=== PATIENT | male | born 1985 | race American Indian/Alaskan Native ===

== ENCOUNTER 2017-07-10 14:33 | Emergency (ER) | payer OTHER ==
[2017-07-10 14:52] VITALS: TEMP 97.5
--- NOTE | 2017-07-10 16:15 | C.PDOC ---
History Of Present Illness 31 yo male c/o right fifth finger pain since Monday (3 days) s/p punching something. Notes decreased movement at the tip of the finger. No change in sensation. No other injury. Right hand dominant. Time Seen by Provider: 07/10/17 15:22 Chief Complaint (Nursing): Finger,Hand,&Wrist History Per: Patient History/Exam Limitations: no limitations Onset/Duration Of Symptoms: Days Current Symptoms Are (Timing): Still Present Past Medical History Vital Signs: Last Vital Signs Temp 97.5 F L 07/10/17 14:51 Pulse 79 07/10/17 16:43 Resp 18 07/10/17 16:43 BP 125/72 07/10/17 16:43 Pulse Ox 98 07/10/17 16:56 Family History: States: Unknown Family Hx - Social History Hx Alcohol Use: Yes Hx Substance Use: Yes - Immunization History Hx Tetanus Toxoid Vaccination: No Hx Influenza Vaccination: No Hx Pneumococcal Vaccination: No Review Of Systems Constitutional: Negative for: Fever Musculoskeletal: Positive for: Hand Pain Neurological: Negative for: Weakness, Numbness Physical Exam - Physical Exam Appears: Well, Non-toxic, No Acute Distress Skin: Normal Color, Warm, Dry Head: Atraumatic, Normacephalic Eye(s): bilateral: Normal Inspection, EOMI Nose: Normal Oral Mucosa: Moist Throat: Normal Neck: Normal, Normal ROM, Supple Chest: Symmetrical Respiratory: No Accessory Muscle Use Back: Normal Inspection Extremity: No Normal ROM (decreased extension at the DIP), Tenderness ( tenderness, swelling and ecchymosis at the DIP), Capillary Refill (<2 sec), Swelling Extremity: Bilateral: Normal Color And Temperature Pulses: Left Radial: Normal, Right Radial: Normal Neurological/Psych: Oriented x3, Normal Speech, Normal Motor, Normal Sensation Gait: Steady ED Course And Treatment O2 Sat by Pulse Oximetry: 98 - Other Rad Finger XR X-Ray: Viewed By Me, Read By Radiologist Interpretation: Accession No. : [id number]. Patient Name / ID : JOSELIN DONIS / [id number]. Exam Date : 07/10/2017 15:56:03 ( Approved ). Study Comment : Sex / Age : M / 31Y. Creator : Jdud Hernandez MD. Dictator : Judd Hernandez MD. Call Circuit Worker : Rn Charge : Judd Hernandez MD. Approver2 : Report Date : 07/10/2017 16:22:05. My Comment : . PROCEDURE: Right small finger radiographs. HISTORY: r/o fracture. COMPARISON: None. TECHNIQUE: AP radiograph of the right hand, as well as spot oblique and lateral images of small finger were obtained. FINDINGS: RIGHT SMALL FINGER: Normal right small finger, without fracture or focal lesion. Remainder of the right hand (as seen on the AP view) grossly unremarkable. JOINTS: Normal. SOFT TISSUES: Normal. OTHER FINDINGS: None. IMPRESSION: Normal right small finger radiographs. Progress Note: Finger splint applied by special procedure technologist. Discussed iwth pt liekly tendon injury, instructed hand specialist follow up in 1-2 days. Disposition - Disposition Referrals: Juan Vazquez MD [Staff Provider] - Disposition: HOME/ ROUTINE Disposition Time: 16:14 Condition: GOOD Additional Instructions: Follow up with hand specialist in 1-2 days. Return to ER if symptoms persist or worsen. Instructions: Finger Fracture (ED) Forms: [employer] ([place]) - Clinical Impression Clinical Impression: Finger sprain
--- NOTE | 2017-07-10 16:23 | RAD ---
PROCEDURE: Right small finger radiographs. HISTORY: r/o fracture COMPARISON: None. TECHNIQUE: AP radiograph of the right hand, as well as spot oblique and lateral images of small finger were obtained. FINDINGS: RIGHT SMALL FINGER: Normal right small finger, without fracture or focal lesion. Remainder of the right hand (as seen on the AP view) grossly unremarkable. JOINTS: Normal. SOFT TISSUES: Normal. OTHER FINDINGS: None. IMPRESSION: Normal right small finger radiographs.
[2017-07-10 16:44] VITALS: BP 125/72; PULSE 79; RESP 18
[2017-07-10 16:56] VITALS: O2SAT 98
== END 2017-07-10 16:44 | disposition home or self-care (01) ==
LOC: C.ER 14:33
DX: S63.616A Unspecified sprain of right little finger, initial encounter (principal); X58.XXXA Exposure to other specified factors, initial encounter